=== PATIENT | male | born 1960 | race Caucasian/White ===

== ENCOUNTER 2016-11-18 12:16 | Emergency (ER) | payer BC ==
[~2016-11-18] VITALS: Ht 185.4 cm; Wt 96.9 kg
[2016-11-18] MEDS ORDERED: PREDNISONE10 MG PO (14:41)
[2016-11-18 15:05] VITALS: BP 164/105
== END 2016-11-18 15:12 | disposition home or self-care (01) ==
LOC: EME 12:16
DX: M54.16 Radiculopathy, lumbar region (principal); S86.912A Strain of unspecified muscle(s) and tendon(s) at lower leg level, left leg, initial encounter; F17.200 Nicotine dependence, unspecified, uncomplicated
CPT/HCPCS: 93971; 99281; 99283

== ENCOUNTER 2016-11-26 16:30 | Emergency (ER) | payer BC ==
[~2016-11-26] VITALS: Ht 188 cm; Wt 97.4 kg
[~2016-11-26 16:30] MED LIST: PREDNISONE10 MG PO
[2016-11-26 19:03] LABS: EOSINOPHIL (%) 1.6 % (0-5); EOSINOPHIL COUNT 0.2 K/uL (0-0.3); HEMATOCRIT 44.9 % (38.0-50.0); IMMATURE GRANULOCYTE (%) 0.4 % (0.0-0.7); LYMPHOCYTE COUNT 2.3 K/uL (1.0-2.8); MCHC 34.1 G/DL (30.0-36.0); MCV 96.8 FL (86-99); MEAN PLAT.VOLUME 8.9 uM^3 (9.0-12.4); MONOCYTE (%) 7.8 % (3-12); MONOCYTE COUNT 0.8 K/uL (0-0.8); NEUTROPHIL (%) 67.8 % (45-76); PLATELET COUNT 275 K/uL (156-360); RBC DIS.WIDTH-CV 12.5 % (11.8-14.6); RBC DIS.WIDTH-SD 44.5 % (39-53); RED BLOOD COUNT 4.64 M/uL (4.00-5.50); WHITE BLOOD COUNT 10.3 K/uL (4.1-10.2)
[2016-11-26 19:12] LABS: CHLORIDE 99 mEq/L (99-109); POTASSIUM 5.1 mEq/L (3.7-5.4); SODIUM 136 mEq/L (136-147)
[2016-11-26 19:13] LABS: INTER. NORMALIZED RATIO 0.9; PTT 25.9 (25-32)
[2016-11-26 19:15] LABS: GLUCOSE 96 mg/dL (70-99)
[2016-11-26 19:16] LABS: ANION GAP 10 MEQ/L (2-14)
[2016-11-26 19:17] LABS: TOTAL BILIRUBIN 0.3 mg/dL (0.0-1.0)
[2016-11-26 19:18] LABS: ALKALINE PHOSPHATASE 74 IU/L (3-129); GFR ESTIMATE (CALCULATED) > 59 mL/min/
[2016-11-26 19:19] LABS: UREA NITROGEN (BUN) 17 mg/dL (9-23)
[2016-11-26 19:21] LABS: CREATINE KINASE 101 IU/L (1-294)
[2016-11-26 20:53] LABS: PROTHROMBIN TIME 9.4 (9.2-11.2)
[2016-11-26 22:13] VITALS: BP 154/98
== END 2016-11-26 22:15 | disposition short-term general hospital (02) ==
LOC: EME 16:30
PROVIDERS: Emergency Medicine
DX: I70.92 Chronic total occlusion of artery of the extremities (principal); F17.200 Nicotine dependence, unspecified, uncomplicated
CPT/HCPCS: 80053; 82550; 85025; 85610; 85730; 93926; 99281; 99285; J1170; J2405; J7030; J7050

== ENCOUNTER → 2017-10-21 | Outpatient (CLI) | payer BC | END | disposition home or self-care (01) | LOC: CDC 09:51 → EDSTATUS 12:52 → CDC 12:57 | DX: Z01.810 Encounter for preprocedural cardiovascular examination (principal); R94.31 Abnormal electrocardiogram [ECG] [EKG] | CPT/HCPCS: 93000 ==